=== PATIENT | male | born 1965 | race Caucasian/White ===

== ENCOUNTER 2020-06-26 18:14 | Emergency (ER) | payer OTHER, SELFPAY ==
--- NOTE | ~2020-06-26 | XR_ITS ---
EXAMINATION: XR chest 1V portable DATE: 06/26/2020 19:49 INDICATION: Cough and fever. TECHNIQUE: frontal view of the chest was obtained. COMPARISON: Chest radiograph and CT dated 06/16/2016 FINDINGS: Emphysema better appreciated on prior CT . Focal somewhat masslike airspace opacity at the lateral le ft upper lung zone. More bandlike opacity in the right lower lung zone. No pulmonary edema, pleural e ffusion or pneumothorax. The cardiomediastinal silhouette is normal. IMPRESSION: 1. New somewhat masslike airspace opacity in the lateral left upper lung zone which could represent p neumonia or malignancy. Consider chest CT for further evaluation. 2. Bandlike opacity in the right lower lung zone favoring atelectasis over pneumonia. 3. Emphysema. Reviewed, dictated and finalized at location A. IMPRESSION: 1. New somewhat masslike airspace opacity in the lateral left upper lung zone w hich could represent pneumonia or malignancy. Consider chest CT for further una luation. 2. Bandlike opacity in the right lower lung zone favoring atelectasis over pneu monia. 3. Emphysema.
--- NOTE | ~2020-06-26 | CT_ITS ---
EXAMINATION: CTA chest PE protocol DATE: 06/26/2020 21:23 INDICATION: Cough and shortness of breath TECHNIQUE: Computed tomography (CT) pulmonary angiogram of the chest was performed with 100 mL Omnipa que-350 intravenous contrast. Additional 3D reconstructions utilizing coronal maximum intensity proje ction (MIP) were performed. Automated exposure control and iterative reconstruction technique were em ployed. The dose-length product was 608.45 mGy-cm. COMPARISON: 06/16/2016 FINDINGS: Excellent contrast opacification of the pulmonary arteries. There is mild streak artifact from dense contrast in the superior vena cava and right atrium. Minimal scattered respiratory motion artifact wh ich does not significantly limit evaluation. No pulmonary embolism. Peripheral predominant patchy air space opacities throughout both lungs most prominent in the bilateral upper lobes and superior segmen ts of the lower lobes suspicious for COVID pneumonia. This includes opacities at the lateral left upp er lobe with spine to the masslike opacity on prior chest radiograph. Small bilateral pleural effusio ns. Heart size is normal. No pericardial effusion. Small amount of atherosclerotic coronary artery ca lcification. Thoracic aorta is normal in caliber with no dissection. Mild mediastinal and bilateral h ilar lymphadenopathy which most likely reactive. Calcified mediastinal and bilateral hilar lymph node s consistent with old granulomatous disease. Mild thoracic spondylosis. IMPRESSION: 1. No pulmonary embolism. 2. Patchy bilateral peripheral groundglass opacities most suspicious for COVID pneumonia. 3. Mild emphysema. 4. Mediastinal and bilateral hilar lymphadenopathy which is most likely reactive. Reviewed, dictated and finalized at location A. IMPRESSION: 1. No pulmonary embolism. 2. Patchy bilateral peripheral groundglass opacities most suspicious for COVID pneumonia. 3. Mild emphysema. 4. Mediastinal and bilateral hilar lymphadenopathy which is most likely reactiv e.
[2020-06-26 18:20] VITALS: BP 123/75; PULSE 87; RESP 20; TEMP 36.3; O2SAT 98
[2020-06-26 18:53] VITALS: BP 130/85; PULSE 91; RESP 22; TEMP 37.5; O2SAT 100
--- NOTE | 2020-06-26 19:13 | ECG_ITS ---
Measurements Intervals Lillian Rate: 84 P: 45 VA: 141 QRS: 11 QRSD: 110 T: 46 QT: 378 QTc: 447 Interpretive Statements SINUS RHYTHM INCOMPLETE RIGHT BUNDLE BRANCH BLOCK ST ELEVATION IN DIFFUSE LEADS- PROBABLY EARLY REPOLARIZATION ABNORMALITY BASELINE ARTIFACT- II, III, AVR, AVL, AVF, V1, V3-V6 BORDERLINE ECG Electronically Signed On 06-26-2020 20:17:21 CDT by Lucas Lucio D.O.
--- NOTE | 2020-06-26 19:31 | ED.URI ---
HPI - URI/Sore Throat General Chief Complaint: Fever Stated Complaint: sob, headache, fever, covid exposure Time Seen by Provider: 06/26/20 19:13 Source: patient Mode of arrival: ambulatory Limitations: no limitations History of Present Illness HPI Narrative: This is a 55 year old male that presents to the ER for cold symptoms x 2 weeks. Reports cough, congestion, fever, myalgias. Also reports shortness of breath with exertion. Reports a dull ache in his chest that has been constant. His recently tested positive for Covid. Denies lower extremity edema. Related Data Allergies Allergy/AdvReac Type Severity Reaction Status Date / Time No Known Allergies Allergy Verified 06/26/20 18:51 Review of Systems Review of Systems: Narrative: CONSTITUTIONAL: Denies fever ENT: Reports rhinorrhea, congestion. Denies sore throat, or otalgia. CARDIOVASCULAR: Reports chest pain. Denies edema. RESPIRATORY: Reports cough and dyspnea. All systems reviewed & are unremarkable except as noted in HPI and below PMFSH Past Medical History Medical History (Updated 06/26/20 @ 21:50 by Shruthi Arita PA-C) History of coronary artery disease History of hyperlipidemia Exam Narrative: Exam Narrative: GENERAL: Well-appearing, well-nourished, and in no acute distress. HEAD: Normocephalic, atraumatic. EYES: EOMI. ENT: Nares clear, no rhinorrhea or epistaxis. Mucous membranes moist. Oropharynx without tonsillar hypertrophy exudate or other lesions. Bilateral TMs pearly garcia non-bulging NECK: Supple. No adenopathy or masses. CHEST: Clear to auscultation. No respiratory distress. No wheezes rales or rhonchi HEART: Regular rate and rhythm. No murmur heard. Normal peripheral pulses. EXTREMITIES: Normal range of motion. No edema. SKIN: Warm, dry, no rash. NEURO: No focal deficits. Alert and oriented x3. PSYCH: Normal mood and affect Course Vital Signs Vital signs: Vital Signs Temperature 97.3 F L 06/26/20 18:20 Pulse Rate 87 06/26/20 18:20 Respiratory Rate 20 06/26/20 18:20 Blood Pressure 123/75 06/26/20 18:20 Pulse Oximetry 98 06/26/20 18:20 Temperature 99.5 F 06/26/20 18:53 Pulse Rate 88 06/26/20 21:00 Respiratory Rate 20 06/26/20 21:00 Blood Pressure 129/76 06/26/20 21:00 Pulse Oximetry 95 06/26/20 21:00 MDM - URI/Sore Throat MDM Narrative Medical decision making narrative: Patient presents the emergency department for cold symptoms. Also reporting dull chest pain and shortness of breath. He is afebrile and nontoxic-appearing. Oxygen saturation is normal on room air. CBC and metabolic panel without concerning findings. EKG with nonspecific ST changes, troponin is negative. D-dimer was elevated, so CTA of the chest was obtained. This is without evidence of pulmonary embolism. Does show scattered groundglass opacities bilaterally suspicious for Covid pneumonia. Shows emphysema. And mediastinal and hilar lymphadenopathy. Patient was updated on case findings. Will be started on oral antibiotics pending Covid result. He is stable and felt appropriate for further outpatient evaluation. He was given warnings to return to the ER Lab Data Attestation: I reviewed the patient's lab results. Result diagrams: 06/26/20 19:50 06/26/20 19:50 Labs: Lab Results 06/26/20 06/26/20 06/26/20 Range/Units 19:50 19:50 19:50 WBC 4.1 L (4.5-10.0) K/mm3 RBC 4.64 (4.6-6.20) M/mm3 Hgb 14.4 (14.0-18.0) g/dL Hct 42.5 (42.0-52.0) % MCV 91.6 (80-100) fl MCH 31.0 (26-34) pg MCHC 33.9 (32-36) g/dl RDW 12.4 (11.5-14.5) % Plt Count 189 (150-375) k/mm3 MPV 9.3 (7.4-10.4) fl Immature Gran % (Auto) 0.2 (0-0.5) % Neut % (Auto) 57.8 (45.5-73.1) % Lymph % (Auto) 35.1 (18.3-44.2) % [place] % (Auto) 6.2 (2.6-8.5) % Eos % (Auto) 0.7 (0-4.4) % Baso % (Auto) 0.0 L (0.2-1.2) % Lymph # (Auto) 1.42 (0.9-3.2) K/mm3 [place]
[2020-06-26 19:51] VITALS: BP 115/75; PULSE 85; RESP 16; O2SAT 96
[2020-06-26 20:17] LABS: Eosinophils Percent Auto 0.7 % (0-4.4); Hematocrit 42.5 % (42.0-52.0); Hemoglobin 14.4 g/dL (14.0-18.0); Immature Granulocyte Absolute 0.01 K/mm3 (0.00-0.031); Immature Granulocyte Percent A 0.2 % (0-0.5); Lymphocytes Absolute Auto 1.42 K/mm3 (0.9-3.2); Lymphocytes Percent Auto 35.1 % (18.3-44.2); Mean Corpuscular HGB Conc 33.9 g/dl (32-36); Mean Corpuscular Volume 91.6 fl (80-100); Mean Platelet Volume 9.3 fl (7.4-10.4); Monocytes Absolute Auto 0.3 K/mm3 (0.1-0.6); Monocytes Percent Auto 6.2 % (2.6-8.5); Neutrophils Absolute Auto 2.3 K/mm3 (1.3-6.7); Neutrophils Percent Auto 57.8 % (45.5-73.1); Platelet Count Result 189 k/mm3 (150-375); Red Blood Count 4.64 M/mm3 (4.6-6.20); Red Cell Distribution Width 12.4 % (11.5-14.5); White Blood Count 4.1 K/mm3 (4.5-10.0)
[2020-06-26 20:27] LABS: Alanine Aminotransferase 23 U/L (4-50); Albumin Level 3.7 g/dL (3.5-5.1); Alkaline Phosphatase 45 U/L (38-126); Anion Gap 5 mmol/L (8-16); Aspartate Amino Transferase 37 U/L (17-59); Bilirubin,Total 0.4 mg/dL (0.2-1.3); Blood Urea Nitrogen 18 mg/dL (9-20); Calcium 8.4 mg/dL (8.4-10.2); Carbon Dioxide 29 mmol/L (22-30); Chloride 103 mmol/L (98-107); Estimated CRCL calculation 93 ml/min; Estimated Glomerular Filt Rate > 60; Glucose 151 mg/dL (75-110); Lactate Dehydrogenase 591 U/L (313-618); Potassium 3.6 mmol/L (3.4-5.0); Prothrombin Time 13.5 Seconds (11.1-14.7); Sodium 137 mmol/L (137-145)
[2020-06-26 20:28] LABS: Partial Thromboplastin Time 33.2 SECONDS (22.3-36.8)
[2020-06-26 20:30] LABS: D Dimer 0.83 ug/mL (<0.48)
[2020-06-26 20:38] LABS: Troponin I < 0.012 ng/mL (0.000-0.034)
[2020-06-26 21:00] VITALS: BP 129/76; PULSE 88; RESP 20; O2SAT 95
[2020-06-26] MEDS: ACETAMINOPHEN 500 MG TABLET 1000 MG PO (22:34)
[2020-06-26 22:35] VITALS: BP 127/80; PULSE 96; RESP 18; O2SAT 96
[2020-06-26 23:18] VITALS: BP 125/77; PULSE 79; RESP 18; O2SAT 96
[2020-06-27 20:46] LABS: SARS-CoV-2 RNA PCR Positive
== END 2020-06-26 23:23 | disposition home or self-care (01) ==
PROVIDERS: Physician Assistant; Emergency Provider Emergency Medicine; PCP Nurse Practitioner
DX: U07.1 COVID-19 (principal); J12.82 Pneumonia due to coronavirus disease 2019; I25.10 Atherosclerotic heart disease of native coronary artery without angina pectoris; E78.5 Hyperlipidemia, unspecified; I45.10 Unspecified right bundle-branch block; R94.31 Abnormal electrocardiogram [ECG] [EKG]
CPT/HCPCS: 36415; 71045; 71275; 80053; 82728; 83615; 84484; 85025; 85380; 85610; 85730; 93005; 99284; A9270; C9803; Q9967; U0003; U0005

== ENCOUNTER 2021-11-23 07:51 | Outpatient (CLI) | payer OTHER, SELFPAY ==
[2021-11-23 10:17] LABS: Cholesterol 259 mg/dL (0-200); HDL Direct 36 mg/dL; Triglycerides 350 mg/dL (<150)
[2021-11-23 10:28] LABS: LDL Cholesterol Direct 161 mg/dL
== END 2021-11-23 07:52 | disposition home or self-care (01) ==
LOC: ANHLAB 07:56
PROVIDERS: PCP Nurse Practitioner; Visit Provider Internal Medicine Interventional Cardiology
DX: E78.2 Mixed hyperlipidemia (principal)
CPT/HCPCS: 36415; 80061